=== PATIENT | male | born 1960 | race Caucasian/White ===

== ENCOUNTER 2024-03-23 10:25 | Emergency (ER) | payer OTHER, SELFPAY ==
[2024-03-23] VITALS (11 sets, daily range): BP systolic 107–141; BP diastolic 61–96; PULSE 50–62; RESP 19–24; TEMP 36.6; O2SAT 91–98; BMI 34.7
--- NOTE | 2024-03-23 10:35 | EKG_ITS ---
[address] [address] Test Date: 2024-03-23 Pat Name: Gabe Weiss Department: Room: Gender: Male [employer]: REE : 1960 Requested By: Order Number: [id number] Reading MD: Zan Abraham Measurements Intervals [place] Rate: 54 P: 20 CT: 222 QRS: -22 QRSD: 104 T: 14 QT: 430 QTc: 407 Interpretive Statements Sinus bradycardia with 1st degree AV block with occasional premature ventricular complexes Minimal voltage criteria for LVH, may be normal variant ( R in aVL ) Electronically Signed On 03-25-2024 18:25:36 PDT by Zan Abraham
--- NOTE | 2024-03-23 10:38 | DI.RAD.S_ITS ---
PROCEDURE: XR CHEST 1V INDICATIONS: chest pain TECHNIQUE: One view of the chest was acquired. COMPARISON: No priors, noting PACS message: List of prior exams may be incomplete because of problems retrieving results is displayed during this exam.. FINDINGS: Surgical changes and devices: None. Lungs and pleura: Lungs are clear. No pleural effusions or pneumothorax. Mediastinum: Mediastinal contours appear normal. Heart size is enlarged. Bones and chest wall: No suspicious bony lesions. Overlying soft tissues appear unremarkable. IMPRESSION: No acute pulmonary process. Dictated by: Lanie Tomlin M.D. on 03/23/2024 at 11:16 Approved by: Lanie Tomlin M.D. on 03/23/2024 at 11:29
[2024-03-23 10:45] LABS: Add Manual Diff / Slide Review NO; Basophils Absolute Auto 100 /uL (0-100); Basophils Percent Auto 0.9 % (0-2); Eosinophils Absolute Auto 200 /uL (0-450); Eosinophils Percent Auto 2.1 % (2-4); Hematocrit 43.7 % (41-53); Hemoglobin 14.9 g/dL (13.5-17.5); Lymphocytes Absolute Auto 1800 /uL (1100-4500); Lymphocytes Percent Auto 23.8 % (25-40); Mean Corpuscular HGB Conc 34.2 % (30-36); Mean Corpuscular Hemoglobin 31.3 PG (26-34); Mean Corpuscular Volume 91.6 fL (80-100); Monocytes Absolute Auto 900 /uL (0-900); Monocytes Percent Auto 12.7 % (3-14); Neutrophils Absolute Auto 4500 /uL (1500-7000); Neutrophils Percent Auto 60.5 % (50-75); Platelet Count 216 X10^3/uL (150-400); Red Blood Cell Count 4.77 X10^6/uL (4.5-5.9); White Blood Cell Count 7.4 X10^3/uL (4.5-11.0)
[2024-03-23 10:54] LABS: PTT Partial Thromboplastin Tim 36 SECONDS (25.1-36.5)
[2024-03-23 11:01] LABS: Alanine Aminotransferase 39 IU/L (<50); Albumin 4.1 g/dL (3.5-5.0); Albumin Globulin Ratio 1.2 (1.0-2.8); Alkaline Phosphatase 84 U/L (38-126); Aspartate Aminotransferase 38 IU/L (17-59); BUN Creatinine Ratio 20.5 (6-22); Bilirubin Total 0.9 mg/dL (0.2-1.3); Blood Urea Nitrogen 17 mg/dL (9-20); Calcium 9.2 mg/dL (8.4-10.2); Carbon Dioxide 23 mmol/L (22-32); Chloride 106 mmol/L (98-107); Creatine Kinase 338 U/L (55-170); Estimated Glomerular Filt Rate > 60 mL/min (>60); Globulin 3.3 g/dL (1.7-4.1); Glucose 112 mg/dL (80-110); HEMOLYSIS 42 (0-50); Lipase 75 U/L (23-300); Magnesium 2.3 mg/dL (1.6-2.3); Potassium 4.5 mmol/L (3.4-5.1); Sodium 135 mmol/L (137-145); Total Protein 7.4 g/dL (6.3-8.2)
--- NOTE | 2024-03-23 11:07 | ED_ITS ---
HPI - Dizziness General Chief Complaint: Dizziness Stated Complaint: Dizzy/confusion Time Seen by Provider: 03/23/24 11:06 Source: patient, RN notes reviewed and old records reviewed Limitations: no limitations History of Present Illness HPI Narrative: 63-year-old male history hypertension, dyslipidemia, prediabetes patient presents with complaint of feeling like the [place] that he works on was moving but it was not. Patient states this started about 930 this morning. He states was not like the room was spinning but he just felt like things were moving and sort of disoriented in terms of space. States no confusion or changes to his mentation. States all symptoms have resolved. Denies any headaches denies any vision changes. No sensation of syncope or near syncope. Patient denies any numbness tingling or weakness. No difficulty with gait. Patient states no chest pain or shortness of breath, had some mild nausea but no vomiting, states normal bowel movements, does have some nocturia but no urinary issues otherwise. States has not had similar symptoms in the past. Started working about 5:00 a.m. this morning had taken the very out to the [facility] and returned once today. Home medications include lisinopril, metoprolol and metformin and glimepiride, no aspirin or anticoagulants. Has had prior cardiac ablation denies other surgeries. 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 Has a follow up appointment this Wednesday. No tobacco, alcohol or recreational drugs. Related Data Previous Rx's Medication Instructions Recorded meclizine 25 mg chewable tablet 25 mg PO TID PRN dizziness #14 tabs 03/23/24 Review of Systems Review of Systems ROS Unobtainable: All systems reviewed & are unremarkable except as noted in HPI and below Exam Narrative Exam Narrative: GEN: well nourished, well appearing male, alert and oriented x 3, patient appears to be in mild distress. HEENT: Atraumatic, pupils are equal round reactive to light, extraocular movements are intact, nares are clear, TMs are clear with no fluid, there is no conjunctival pallor. Throat is clear without any exudates, erythema, tonsillar enlargement or uvular deviation, no facial droop HEART: Regular rate and rhythm without murmur, clicks, rubs. LUNGS:Lungs clear to auscultation, no wheezes, rales, crackles, chest moves symmetrically ABD:bowel sounds normal, soft, non-tender, no guarding, rebound, rigidity, no masses noted, no hepatosplenomegaly :No CVA tenderness MSCL: Non-tender, no muscle atrophy, muscles strength 5/5 upper and lower extremities, full range of motion, normal gait NEURO:CN 2-12 intact, sensation normal, finger nose finger test normal, heel luna test normal. Initial Vital Signs Initial Vital Signs: Vital Signs Pulse Oximetry 91 03/23/24 10:30 Scores NIH Stroke Scale Level of Conciousness: Alert, keenly responsive Ask month/age: Answers both questions correctly. Open/close eyes, close hand: Performs both tasks correctly Best gaze horizontal: Normal Visual cam: No visual loss Facial palsy: Normal symetrical movement Left arm drift: No drift for full 10 sec Right arm drift: No drift for full 10 sec Left leg drift: No drift for full 5 sec Right leg drift: No drift for full 5 sec Limb ataxia: Absent Sensory on face/arms/legs: Normal, no sensory loss Best language: No aphasia, normal Dysarthria: Normal Extinction or inattention: No abnormality Total NIH Stroke scale score: 0 Course Orders Ordered: ED Orders 03/23/24 10:37 Complete Blood Count AUTO DIFF Stat Comprehensive Metabolic Panel Stat Lipase Stat Magnesium Stat NT-proBNP (BNP-Adult 18+) Stat PTT Partial Thromboplastin [place] Stat Prothrombin Time INR Stat Troponin & CK Cardiac Panel Stat 03/23/24 10:38 XR chest 1V Stat EKG-12 Lead Stat 03/23/24 11:32 CT head/brain wo con Stat Discontinued Medications Sodium Chloride (Normal Saline 0.9%) 1,000 mls @ 1,000 mls/hr IV BOLUS ONE Stop: 03/23/24 12:30 Last Infusion: 03/23/24 12:51 Dose: Infused Documented By: Admin: 03/23/24 11:35 Dose: 1,000 mls/hr Documented By: Vital Signs Vital signs: Vital Signs - 8 hr 03/23/24 10:51 03/23/24 11:00 03/23/24 11:00 Temperature 97.9 F Pulse Rate 52 L 50 L Respiratory Rate 20 Blood Pressure 119/67 107/61 Pulse Oximetry 96 94 Oxygen Delivery Method Room Air 03/23/24 11:30 03/23/24 11:31 03/23/24 11:31 Temperature Pulse Rate 54 L 57 L Respiratory Rate 21 Blood Pressure 123/70 Pulse Oximetry 97 98 Oxygen Delivery Method 03/23/24 11:53 03/23/24 11:53 03/23/24 12:00 Temperature Pulse Rate 54 L 59 L Respiratory Rate Blood Pressure 141/75 H Pulse Oximetry 95 97 Oxygen Delivery Method 03/23/24 12:01 03/23/24 12:01 03/23/24 12:30 Temperature Pulse Rate 59 L Respiratory Rate Blood Pressure 132/96 H 136/71 Pulse Oximetry 95 Oxygen Delivery Method 03/23/24 12:30 03/23/24 13:00 03/23/24 13:00 Temperature Pulse Rate 53 L 62 Respiratory Rate 19 22 Blood Pressure 139/83 Pulse Oximetry 96 95 Oxygen Delivery Method MDM - Dizziness Lab Data 03/23/24 10:37 03/23/24 10:37 Labs: Lab Results 03/23/24 Range/Units 10:37 WBC 7.4 (4.5-11.0) X10^3/uL RBC 4.77 (4.5-5.9) X10^6/uL Hgb 14.9 (13.5-17.5) g/dL Hct 43.7 (41-53) % MCV 91.6 (80-100) fL MCH 31.3 (26-34) PG MCHC 34.2 (30-36) % RDW 14.0 (11.6-14.8) % Plt Count 216 (150-400) X10^3/uL Neut % (Auto) 60.5 (50-75) % Lymph % (Auto) 23.8 L (25-40) % [place] % (Auto) 12.7 (3-14) % Eos % (Auto) 2.1 (2-4) % Baso % (Auto) 0.9 (0-2) % Neut # (Auto) 4500 (0298-4794) /uL Lymph # (Auto) 1800 (7611-2127) /uL [place] # (Auto) 900 (0-900) /uL Eos # (Auto) 200 (0-450) /uL Baso # (Auto) 100 (0-100) /uL PT 12.0 (9.4-12.5) SECONDS INR 1.0 (0.9-1.3) APTT 36 (25.1-36.5) SECONDS Sodium 135 L (137-145) mmol/L Potassium 4.5 (3.4-5.1) mmol/L Chloride 106 (98-107) mmol/L Carbon Dioxide 23 (22-32) mmol/L BUN 17 (9-20) mg/dL Creatinine 0.83 (0.66-1.25) mg/dL Estimated GFR > 60 (>60) mL/min BUN/Creatinine Ratio 20.5 (6-22) Glucose 112 H (80-110) mg/dL Calcium 9.2 (8.4-10.2) mg/dL Magnesium 2.3 (1.6-2.3) mg/dL Total Bilirubin 0.9 (0.2-1.3) mg/dL AST 38 (17-59) IU/L ALT 39 (<50) IU/L Alkaline Phosphatase 84 (38-126) U/L Total Creatine Kinase 338 H (55-170) U/L Troponin I < 0.012 (0.01-0.034) ng/mL NT-Pro-B Natriuret Pep 35 (<125) pg/mL Total Protein 7.4 (6.3-8.2) g/dL Albumin 4.1 (3.5-5.0) g/dL Globulin 3.3 (1.7-4.1) g/dL Albumin/Globulin Ratio 1.2 (1.0-2.8) Lipase 75 (23-300) U/L Urine Dip Bedside Urine Glucose Negative Bedside Urine Bilirubin - Negative Bedside Urine Ketone - Negative Urine Specific [place] 1.015 Bedside Urine Occult Blood - Negative Bedside Urine pH 5.5 Bedside Urine Protein - Negative Bedside Urine Urobilinogen - Negative Bedside Urine Nitrite - Negative Bedside Urine Leukocytes - Negative Esterase ECG Data Attestation: I personally reviewed and interpreted this ECG as follows: Prior ECG tracings: not available for review Interpretation: Sinus bradycardia with first-degree block, occasional PVCs rate of 54 [place] 222, QRS of 104 QTC 407. No priors for comparison. MDM Narrative Medical decision making narrative: 62-year-old male dizziness he states he was not confused but just felt off balance or like the [place] boat he was on was moving when it was not actively moving through the water. Similar symptoms in the past no other acute neurologic symptoms reported, NIH is 0 with normal exam otherwise. No recent changes to hearing, no fullness of his ears. Patient's exam is overall reassuring. Head CT shows no acute change Labs show white count of 7.4 hemoglobin of 14 platelets of 216, coags are negative sodium is 135 electrolytes are otherwise appropriate glucose is 112 creatinine 0.83 with a BUN of 17 calcium is 9.2 Mag is 2.3 total CK is 338- troponin and BNP. EKG shows sinus bradycardia with occasional PVCs. Point of care urine is negative Patient's initial blood pressure was appropriate but repeat was low, patient was given a L of fluids. He states he is quite hungry and passed his normal lunch time. He states symptoms have resolved. He notes he is normally bradycardic but states blood pressures typically little bit higher. He has not had any new medication changes. Ambulation trial patient tolerated well. He still states he has a mild symptoms but has been able to tolerate without much issue. Discussed with patient his symptoms seemed to be somewhat vertigo-like, he does not have any other acute neurologic changes we discussed lower my differential but stroke is included. Discussed getting MR stroke workup but patient defers. Prefers to return home we will give a short course of meclizine but discussed return precautions. We will also give ENT follow up if symptoms are persistent and not resolving. Discharge Plan Departure Patient Disposition: Home Clinical Impression: Dizziness Instructions: DI for Vertigo Activity Restrictions/Additional Instructions: Follow-up recheck if you have any persistent symptoms. If your symptoms are persistent please follow up with ENT, contacts included below. You can follow up with a specialist close to where you live if you prefer. You may continue to take your home medications as prescribed although your blood pressure was little low, please continue to monitor your blood pressure and if persistently low I would recommend talking with your physician about decreasing 1 of your blood pressure medications. You can take meclizine 1 tablet every 8 hours as needed for dizziness/vertigo symptoms. Prescription sent to [facility] Please return for recurrent symptoms, severe headaches, new lightheadedness or passing out, vertigo or room spinning, new numbness, tingling or weakness difficulty with speech, persistent vomiting, difficulty with gait or other new or concerning changes. Prescriptions: New meclizine 25 mg tablet,chewable 25 mg PO TID PRN (Reason: dizziness) Qty: 14 0RF Referrals: Rian Gold MD [Physician] - Franky Jay ND [Primary Care Provider] - Stand Alone Forms: Patient Portal/API, Work Release Note
[2024-03-23 11:12] LABS: NT-proBNP (BNP-Adult 18+) 35 pg/mL (<125); Troponin I < 0.012 ng/mL (0.01-0.034)
--- NOTE | 2024-03-23 11:32 | DI.CT.S_ITS ---
PROCEDURE: CT HEAD/BRAIN WO CON INDICATIONS: dizziness TECHNIQUE: Noncontrast 4.5 mm thick angled axial sections acquired from the foramen magnum to the vertex, with coronal and sagittal reformats. For radiation dose reduction, the following was used: automated exposure control, adjustment of mA and/or kV according to patient size. COMPARISON: None. FINDINGS: Image quality: Diagnostic. CSF spaces: Basal cisterns are patent. No extra-axial fluid collections. Ventricles are normal in size and shape. Brain: No midline shift. No intracranial masses or hemorrhage. [place]-white matter interface is normal. Skull and face: Calvarium and visualized facial bones are intact, without suspicious lesions. Sinuses: Visualized sinuses and mastoids are clear. IMPRESSION: No acute intracranial pathology. Dictated by: Lanie Tomlin M.D. on 03/23/2024 at 12:03 Approved by: Lanie Tomlin M.D. on 03/23/2024 at 12:03
[2024-03-23] MEDS: SODIUM CHLORIDE 0.9% 1,000 ML 1000 ML IV (11:35)
== END 2024-03-23 13:26 | disposition home or self-care (01) ==
PROVIDERS: Emergency Provider Emergency Medicine; PCP Naturopath
DX: R42 Dizziness and giddiness (principal); R00.1 Bradycardia, unspecified; I44.0 Atrioventricular block, first degree
CPT/HCPCS: 70450; 71045; 80053; 81003; 82550; 83690; 83735; 83880; 84484; 85025; 85610; 85730; 93005; 96360; 99284